=== PATIENT | male | born 1995 | race Caucasian/White ===

== ENCOUNTER → 2020-11-03 12:46 | Outpatient (BNVA) | payer OTHER, SELFPAY | PROVIDERS: Visit Provider Physician Assistant Medical | DX: S63.501A Unspecified sprain of right wrist, initial encounter (principal); X58.XXXA Exposure to other specified factors, initial encounter; G56.10 Other lesions of median nerve, unspecified upper limb | CPT/HCPCS: 73110; 99203 ==

== ENCOUNTER → 2020-11-14 09:43 | Outpatient (BNVA) | payer OTHER, SELFPAY | PROVIDERS: Visit Provider Physician Assistant Medical | DX: S63.501D Unspecified sprain of right wrist, subsequent encounter (principal); X58.XXXD Exposure to other specified factors, subsequent encounter | CPT/HCPCS: 99213 ==

== ENCOUNTER 2020-11-14 10:10 | Outpatient (RCR) | payer OTHER, SELFPAY ==
--- NOTE | 2020-11-14 15:52 | MHC.OT.OEV ---
[address] [phone] F: [phone] Occupational Therapy Evaluation Diagnosis: Right wrist strain/median nerve neuropathy Date of Onset: 10/28/20 Date of Surgery: Attending Provider: Zahida Guerin PA-C Prescribed Treatment: Eval and treat MD Follow Up Appointment: History of Current Condition: Pt reports right hand sx due to repetitively scraping parts over 2 days Seen in the [facility], Placed on light duty and issued a wrist brace for night wear and work per pt reports. Pt D/C from the [facility] and orders to resume regular duty today Pt with continued median n sx. 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 Shares housework and yard work Current Level of Function and Occupation Self Care, Employment, Leisure: Indep in all areas. To return to regular duty today Sleep: WNL Driving: WNL Vision: Balance: Pain Assessment Pain Score: 0 Pain Scale Used: Numeric (0 - 10) Pain Location and Description: Denies pain Aggravating Factors: NA Alleviating Factors: NA Skin and Soft Tissue Assessment Skin and Soft Tissue: Swelling Comments: Mild thenar ms and volar D2 and 3 MCPjt effusion Nerve assessment Ulnar Nerve: Median Nerve: B/L Impaired Radial Nerve: Comments: B/L digits 1-3 diminished protective sensation. Complaint of pins and needles on right MMT WNL bilaterally Sensory Assessment Temperature: Light Touch: B/L Impaired Proprioception: Vibration: Comments: See above Edema Assessment Upper Extremity: Right Impaired Lower Extremity: Comments: Mild right radial hand Dexterity Assessment Dexterity: WNL Comments: 9 Hole Peg test normal right 22.8 sec....left 25 seg Functional Dexterity Test right 26 sec moderately functional , left 28 sec moderately functional Pt report some difficulty with fine coordination with Lego's Special Tests Comments: AROM(PROM) Strength Cervical Cervical Flexion: Cervical Extension: Cervical Lateral Flexion: Cervical Rotation: Comments: Shoulder Flexion: Extension: Abduction: Internal Rotation: External Rotation: Comments: Flexion: Extension: Abduction: Internal Rotation: External Rotation: Comments: WNL Elbow Flexion: Extension: Pronation: Supination: Comments: WNL Flexion: Extension: Pronation: Supination: Comments: WNL Wrist Flexion: Extension: Ulnar Deviation: Radial Deviation: Comments: WNL Flexion: Extension: Ulnar Deviation: Radial Deviation: Comments: WNL Thumb Thumb CMC Flexion: Thumb MCP Flexion: Thumb IP Flexion: Radial Abduction: Palmar Abduction: [place] (Kapandji 0-10): Comments: WNL Digits Index MCP: PIP: DIP: Long MCP: PIP: DIP: Ring MCP: PIP: DIP: Small MCP: PIP: DIP: Comments: WNL Gross Grasp: Right 90 lb Left 100 lb Lateral Pinch: 15 20 Two-Point Pinch: 15 17 Three-Jaw Sukh: 17 20 Comments: Dominant right < left Patient Education 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 Patient demonstrates Patient verbalizes Barriers to Learning: None Readiness for Learning: Accepting Who was educated? Patient Comments: Pt ed and practice with ther ex for median n glides and lumbrical stretches Pt ed on protection tech for median n recovery Plan of Care Assessment: Pt is a 25 yo male 2 wks 4 days right hand strain with med n sx due to repetitive scraping parts at work. He has improved with modified activity and wearing a wrist support. 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 He has continued mild radial hand edema and complains of continued constant pins and needles sensation He also demonstrates bilateral diminished protective sensation in radial digits with a negative Phalens and negative Tinels sign at the carpal wrist. He is indep with tendon and nerve glides and instructed on techniques to sx management. Skilled OT is not needed at this time. STG Duration: NA Short Term Goals: Na LTG Duration: Nursing Home Goals: NA Frequency and Duration: The patient will be seen na Treatment Plan: Home Exercise Program d/c Electronically Signed By: Alba Zimmer OT CHT CLT Reviewed/agree with student documentation: N/A Therapist: Please sign and return to therapist, Thank you for your referral.
--- NOTE | 2020-11-14 15:52 | MHC.OT.DC ---
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 Bilateral hands diminished protective sensation on digits 1-3. Pt is indep with HEP and self management of median n sx. Skilled OT is not needed at this time. Electronically Signed By: Alba Zimmer OT CHT CLT Reviewed/agree with student documentation: N/A Therapist: Please Sign and return to therapist, thank you for your referral.
== END 2020-11-14 15:51 | disposition home or self-care (01) ==
LOC: HO.OT 10:10
PROVIDERS: Visit Provider Physician Assistant Medical
DX: S66.911D Strain of unspecified muscle, fascia and tendon at wrist and hand level, right hand, subsequent encounter (principal); G62.9 Polyneuropathy, unspecified
CPT/HCPCS: 97165

== ENCOUNTER 2023-09-02 09:31 | Outpatient (AMB) | payer OTHER, SELFPAY ==
--- NOTE | 2023-09-02 09:57 | MHC.PC.OV ---
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 ?? Prior PCP:?Dr charles at [facility] Last office visit/CPE:? 2 yrs ago Acute issue(s):? R wrist/hand prior dx carpal tunnel. Uses wrist brace at bedtime. Has had OT. ?? PMHx:? R wrist Tendonitis, Seasonal allergies. SurgHx:? Deviated septum repair FHx:? Mom: Dyslexia. Dad: unknown SocHx:? Nonsmoker. EtOH 1-2 dr per week. No drugs PFSH Surgical History (Updated 09/02/23 @ 10:22 by Venessa Stanford CMA) H/O nasal septoplasty (~2015) Family History (Updated 09/02/23 @ 10:24 by Venessa Stanford CMA) Maternal Grandfather Diabetes Lung cancer Maternal Grandmother Lung cancer Social History (Updated 09/02/23 @ 10:21 by Venessa Stanford CMA) Housing: House Alcohol intake: current Alcohol intake frequency: a few times a week Alcohol type: beer and hard liquor Patient Tobacco Use Status: Never used Tobacco e-Cigarette/Vaping Use: Never Used Use of substances other than those prescribed or required for medical reasons: No service: No Current occupational status: employed 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 1. Little interest or pleasure in doing things: not at all 2. Feeling down, depressed, or hopeless: not at all 3. Trouble falling or staying asleep, or sleeping too much: several days 4. Feeling tired or having little energy: several days 5. Poor appetite or overeating: not at all 6. Feeling bad about yourself - or that you are a failure or have let yourself or your family down: not at all 7. Trouble concentrating on things, such as reading the newspaper or watching television: not at all 8. Moving or speaking so slowly that other people could have noticed. Or the opposite - being so fidgety or restless that you have been moving around a lot more than usual: not at all 9. Thoughts that you would be better off or of hurting yourself in some way: not at all Total score: 2 Depression Screening Interpretation: Negative Depression Screening Done: Yes 55757 - PHQ-9 Billing: Yes Source: Developed by Drs. Eliezer Horvath, Jen Williamson, Daniel Lazcano and colleagues, with an educational shelbi from [employer]. Thrive Questionnaire Date Thrive assessed: 09/02/23 I am a: Patient What is your living situation today?: I have a steady place to live Within the past 12 months, did the food you bought not last and you didn't have the money to get more?: Never true Within the past 12 months, did you worry whether your food would run out before you got money to buy more?: Never true Do you have trouble paying for medicines?: No Do you have trouble getting transportation to medical appointments?: No Do you have trouble paying your heating and electricity bill?: No Do you have trouble taking care of your child, family member or friend?: No Do you have trouble with day-to-day activities such as bathing, preparing meals, shopping, managing finances, etc.?: No Are you currently unemployed and looking for a job?: No Are you interested in more education?: No THRIVE Score: 0 AUDIT C Alcohol Use Questionnaire (AUDIT-C) 1. How often do you have a drink containing alcohol?: Monthly or less 2. How many drinks containing alcohol do you have on a typical day when you are drinking?: 1 or 2 3. How often do you have six or more drinks on one occasion?: Never Total Score: 1 CLAU-7 AMB Questionnaire CLAU-7 Date CLAU - 7 assessed: 09/02/23 Feeling nervous, anxious, or on edge: 1 = Several days Not being able to stop or control worryin = Not at all Worrying too much about different things: 1 = Several days Trouble relaxin = Not at all Being so restless that it is hard to sit still: 1 = Several days Becoming easily annoyed or irritable: 0 = Not at all Feeling afraid as if something awful might happen: 1 = Several days Total CLAU-7 score (0-4 normal; 5-9 mild; 10-14 moderate; 15-21 severe): 4 Source: Developed by Drs. Eliezer Horvath, Jen Williamson, Daniel Lazcano and colleagues, with an educational shelbi from [employer]. CLAU-7 Assessment Billing CLAU-7 Assessment Tool: CLAU-7 Assessment 33343 Review of Systems Const Denies chills, Denies fatigue, Denies fever(s), Denies headache(s) and Denies weakness ENT Denies dizziness and Denies headache(s) Card Denies chest pain, Denies lightheadedness, Denies dyspnea and Denies other (Palpitations) Resp Denies cough, Denies dyspnea, Denies wheezing and Denies other ( shortness of breath) Musc Denies numbness and Denies tingling Neuro Denies dizziness, Denies headache(s), Denies numbness, Denies tingling, Denies paresthesias and Denies weakness Psych Denies anxiety and Denies depression Endo Denies fatigue Aller/Immun Denies wheezing Physical exam (Primary Care) Vital Signs: Last Vital Signs Pulse 87 09/02/23 10:09 BP 108/62 09/02/23 10:09 Pulse Ox 97 09/02/23 10:09 Oxygen Delivery Method Room Air 09/02/23 10:09 BMI result Body Mass Index 30.2 Tobacco/Smoking Status: Tobacco use Status Tobacco use date assessed 09/02/23 09/02/23 10:26 Patient Tobacco Use Status Never used Tobacco 09/02/23 10:26 e-Cigarette/Vaping Use Never Used 09/02/23 10:26 PHQ-9: PHQ-9 Score PHQ-9: Total score 2 09/02/23 10:32 Depression Screening Interpretation: Negative Thrive Assessment: Date of Thrive Assessment Date Thrive assessed 09/02/23 09/02/23 10:26 Const General: no acute distress and well developed Nutritional Appearance: well nourished Orientation/consciousness: patient oriented x3 HENMT Head: Yes normocephalic and Yes atraumatic Eyes General: appearance normal, both eyes and all related structures Pupils: Equal, round and reactive pupils present EOM: EOMs intact bilaterally Resp Effort & Inspection: normal respiratory effort Auscultation: clear to auscultation bilaterally Cardio Rate: regular rate Rhythm: regular rhythm Heart sounds: S1 normal heart sound present, S2 normal heart sound present, no gallops, no murmurs and no rubs Neuro General: patient oriented x3 and gait normal Cranial nerves: Yes Equal, round and reactive pupils present Psych Affect: normal affect Assessment and Plan Assessment & Plan (1) Right wrist pain: Code(s): M25.531 - Pain in right wrist Plan: Likely?tendinitis?and?possible?de?Quervain?tenosynovitis Advised?ice/heat Will?give?him?a?script?for?naproxen He?has?already?undergone?occupational?therapy?and?tried?injection?therapy?as?well?as?using?a?wrist?brace?at?night Unable?to?use?a?wrist?brace?at?work?due?to?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;?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 Will?refer?to?hand?surgery?for?further?evaluation?and?treatment (2) Allergies: Code(s): T78.40XA - Allergy, unspecified, initial encounter Plan: Continue?cetirizine (3) Difficulty sleeping: Code(s): G47.9 - Sleep disorder, unspecified Plan: Can?continue?melatonin (4) Laboratory exam ordered as part of routine general medical examination: Code(s): Z00.00 - Encounter for general adult medical examination without abnormal findings Plan: Check?labs Orders: Orders Lipid Panel Today Z00.00 - Encounter for general adult medical examination without abnormal findings TSH reflex Free T4 Today Z00.00 - Encounter for general adult medical examination without abnormal findings Comprehensive Leslie. Panel Fast Today Z00.00 - Encounter for general adult medical examination without abnormal findings Microalbumin, Random (w Creat) Today I10 - Essential (primary) hypertension UA and rflx microscopic Today Z00.00 - Encounter for general adult medical examination without abnormal findings Referrals Hand Surgery Referral M25.531 - Pain in right wrist Medications: New naproxen 500 mg PO BID 30 days PRN 60 tabs 2RF pain Coding Level of Care Code New Pt Level 3 (04023) Diagnoses Right wrist pain M25.531 Allergies T78.40XA Difficulty sleeping G47.9 Laboratory exam ordered as part of routine general medical examination Z00.00 Additional Codes CLAU-7 Assessment Billing - CLAU-7 Assessment Tool: CLAU-7 Assessment 50307 ([id number])
[2023-09-02 10:09] VITALS: BP 108/62; PULSE 87; O2SAT 97; BMI 30.2
== END 2023-09-02 11:19 | disposition home or self-care (01) ==
PROVIDERS: Visit Provider Family Medicine
DX: M25.531 Pain in right wrist (principal); T78.40XA Allergy, unspecified, initial encounter; G47.9 Sleep disorder, unspecified
CPT/HCPCS: 99203

== ENCOUNTER 2023-09-14 14:34 | Outpatient (REF) | payer OTHER, SELFPAY ==
[2023-09-14 18:09] LABS: Appearance Urine Clear; Color Urine Yellow; Glucose Urine UA Negative (Negative); Leukocyte Esterase Urine Negative (Negative); Nitrite Urine Negative (Negative); PH 6.5 (5.0-9.0); Specific Gravity - Urine <= 1.005 (1.005-1.025); Urine Blood Negative (Negative); Urine Ketones Trace mg/dL (Negative); Urine Protein Negative (Neg-Trace)
[2023-09-14 18:21] LABS: Alanine Aminotransferase 77 U/L (0-40); Albumin Level 5.1 g/dL (3.5-5.0); Alkaline Phosphatase 71 U/L (39-117); Anion Gap 15 (12-20); Aspartate Amino Transferase 32 U/L (5-37); Bilirubin Total 0.5 mg/dL (0.0-1.0); Blood Urea Nitrogen 11 mg/dL (9-16); Calcium 10.5 mg/dL (8.4-10.2); Carbon Dioxide 28 mmol/L (22-29); Chloride 101 mmol/L (96-108); Cholesterol 186 mg/dL (<200); Estimated Glomerular Filt Rate > 60; Glucose Fasting 87 mg/dL (60-99); HDL Cholesterol 42 mg/dL (>40); LDL Cholesterol Calculated 126 mg/dL (<100); Potassium 3.8 mmol/L (3.3-5.1); Sodium 140 mmol/L (135-145); Total Protein 8.2 g/dL (6.5-8.0); Triglycerides 92 mg/dL (<150)
[2023-09-14 18:22] LABS: Creatinine Urine 34.79 mg/dL; Microalbumin Urine < 5.0 mg/L
[2023-09-14 18:36] LABS: TSH reflex Free T4 0.99 uIU/mL (0.32-4.0)
== END 2023-09-14 14:35 | disposition home or self-care (01) ==
LOC: HO.WFDLDS 14:34
PROVIDERS: Visit Provider Family Medicine
DX: Z00.00 Encounter for general adult medical examination without abnormal findings (principal); I10 Essential (primary) hypertension
CPT/HCPCS: 36415; 80053; 80061; 81003; 82570; 84443

== ENCOUNTER 2023-11-07 15:45 | Outpatient (AMB) | payer OTHER, SELFPAY ==
--- NOTE | 2023-11-07 15:52 | MHC.PC.OV ---
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 30 mins Intake Note: Physical Allergies No Known Allergies Allergy (Verified 11/07/23 15:52) Tobacco use date assessed: 09/02/23 Dental Screening Dental Screen Date: 09/02/23 HPI HPI Comments History of Present Illness Details This is a 28-year-old male with a past medical history of Asperger's, allergies and difficulty sleeping presenting for a physical exam. The patient does not have any specific concerns today. He is up-to-date with eye and dental exams. He has an appointment scheduled to get the seasonal influenza vaccine. We reviewed his lab results from September. It looks like he may have been mildly dehydrated. He did the blood work after fasting all day and working. He will repeat a CMP. He has 2 alcoholic beverages 2 or 3 times per month. No abdominal pain, nausea, vomiting or jaundice. ROS: Constitutional: No unexplained weight loss, fever, chills, fatigue or night sweats. Eyes: No vision changes, blurry vision, double vision, eye pain, eye redness, eye discharge. ENT: No hearing loss, sneezing, congestion, runny nose or sore throat. Respiratory: No shortness of breath, cough or sputum production. Cardiovascular: No chest pain, chest pressure or chest discomfort. No palpitations or pedal edema. Gastrointestinal: No anorexia, nausea, vomiting or diarrhea. No abdominal pain or blood in stool. +occasional acid reflux. Genitourinary: No dysuria, hematuria, urinary frequency. No testicular masses, swelling, scrotal pain or urethral discharge. Neurologic: No headache, dizziness, syncope, unilateral weakness, ataxia, numbness or tingling in the extremities. Musculoskeletal: No muscle pain, back pain, joint pain or swelling. Hematologic/Lymphatics: No bleeding or bruising. No painful lymph nodes. Skin: No rash or itching. Endocrine: No cold or heat intolerance. No polyuria or polydipsia. Psychiatric: No depression or anxiety. No SI/HI. Physical exam: Constitutional: Alert, in no distress. Head: Normocephalic. Eyes: Pupils are equal, round and reactive to light. Extraocular muscles intact. Ear, Nose and Throat: Canals clear. TMs normal. Normal nasal mucosa. No nasal discharge. No oral lesions. Neck: Supple, Full range of motion. No lymphadenopathy. No palpable thyroid masses. Respiratory: Clear to auscultation. Cardiovascular: S1 S2 regular. No murmurs. N Gastrointestinal: Abdomen soft, non-tender, non-distended. Normal bowel sounds. No palpable masses. Genitourinary: Patient declined examination. Neurologic: No focal neurological deficits. Symmetric patellar reflexes. Moves all extremities spontaneously. Sensation intact bilaterally. Skin: No rashes Musculoskeletal: No gross deformities. Normal range of motion. Extremities: Warm and well perfused. No clubbing, cyanosis or edema. 3+ peripheral pulses bilaterally. Psychiatric: Cooperative. [facility] Medical History (Updated 11/07/23 @ 16:26 by TORI King) Asperger syndrome Surgical History (Updated 09/02/23 @ 10:22 by Venessa Stanford CMA) H/O nasal septoplasty (~2015) Family History (Updated 11/07/23 @ 16:11 by TORI King) Maternal Grandfather Diabetes Lung cancer Maternal Grandmother Lung cancer Family/Other Diabetes Social History (Updated 09/02/23 @ 10:21 by Venessa Stanford CMA) Housing: House Alcohol intake: current Alcohol intake frequency: a few times a week Alcohol type: beer and hard liquor Patient Tobacco Use Status: Never used Tobacco e-Cigarette/Vaping Use: Never Used service: No Current occupational status: employed 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 1. Little interest or pleasure in doing things: not at all 2. Feeling down, depressed, or hopeless: not at all 3. Trouble falling or staying asleep, or sleeping too much: not at all 4. Feeling tired or having little energy: not at all 5. Poor appetite or overeating: not at all 6. Feeling bad about yourself - or that you are a failure or have let yourself or your family down: not at all 7. Trouble concentrating on things, such as reading the newspaper or watching television: not at all 8. Moving or speaking so slowly that other people could have noticed. Or the opposite - being so fidgety or restless that you have been moving around a lot more than usual: several days 9. Thoughts that you would be better off or of hurting yourself in some way: not at all Total score: 1 Depression Screening Interpretation: Negative Depression Screening Done: Yes 47201 - PHQ-9 Billing: Yes Source: Developed by Drs. Eliezer Horvath, Jen Williamson, Daniel Lazcano and colleagues, with an educational shelbi from [employer]. Thrive Questionnaire Date Thrive assessed: 09/02/23 I am a: Patient What is your living situation today?: I have a steady place to live Within the past 12 months, did the food you bought not last and you didn't have the money to get more?: Never true Within the past 12 months, did you worry whether your food would run out before you got money to buy more?: Never true Do you have trouble paying for medicines?: No Do you have trouble getting transportation to medical appointments?: No Do you have trouble paying your heating and electricity bill?: No Do you have trouble taking care of your child, family member or friend?: No Do you have trouble with day-to-day activities such as bathing, preparing meals, shopping, managing finances, etc.?: No Are you currently unemployed and looking for a job?: No Are you interested in more education?: No Please select the resources that you would like help with: None Currently or been in a relationship where the following occur: No concerns reported THRIVE Score: 0 AUDIT C Alcohol Use Questionnaire (AUDIT-C) 2. How many drinks containing alcohol do you have on a typical day when you are drinking?: 1 or 2 3. How often do you have six or more drinks on one occasion?: Never Total Score: 0 CLAU-7 AMB Questionnaire CLAU-7 Date CLAU - 7 assessed: 11/07/23 Feeling nervous, anxious, or on edge: 1 = Several days Not being able to stop or control worryin = Not at all Worrying too much about different things: 1 = Several days Trouble relaxin = Not at all Being so restless that it is hard to sit still: 1 = Several days Becoming easily annoyed or irritable: 0 = Not at all Feeling afraid as if something awful might happen: 1 = Several days Total CLAU-7 score (0-4 normal; 5-9 mild; 10-14 moderate; 15-21 severe): 4 Source: Developed by Drs. Eliezer Horvath, Jen Williamson, Daniel Lazcano and colleagues, with an educational shelbi from [employer]. CLAU-7 Assessment Billing CLAU-7 Assessment Tool: CLAU-7 Assessment 68538 Physical exam (Primary Care) Vital Signs: Last Vital Signs Pulse 72 11/07/23 15:57 Resp 14 11/07/23 15:57 BP 108/64 11/07/23 15:57 Pulse Ox 97 11/07/23 15:57 Oxygen Delivery Method Room Air 11/07/23 15:57 BMI result Body Mass Index 25.1 Tobacco/Smoking Status: Tobacco use Status Tobacco use date assessed 09/02/23 11/07/23 16:01 Patient Tobacco Use Status Never used Tobacco 11/07/23 16:01 e-Cigarette/Vaping Use Never Used 11/07/23 16:01 PHQ-9: PHQ-9 Score PHQ-9: Total score 1 11/07/23 16:01 Depression Screening Interpretation: Negative Thrive Assessment: Date of Thrive Assessment Date Thrive assessed 09/02/23 11/07/23 16:01 Currently or been in a relationship where the following occur: No concerns reported Results Reviewed Results Reviewed: Laboratory Tests 09/14/23 09/14/23 14:35 14:40 Calcium 10.5 H AST 32 ALT 77 H Alkaline Phosphatase 71 Total Protein 8.2 H Albumin 5.1 H Urine Ketones Trace Assessment and Plan Assessment & Plan (1) Routine physical examination: Code(s): Z00.00 - Encounter for general adult medical examination without abnormal findings Plan: Patient is seen today for a routine physical. As part of this visit we reviewed the following issues, which are considered and essential part of preventative health in this age group: - Testicular cancer screening, which includes self exam teaching - Screening for colon cancer routinely beginning at age 45 years - Blood pressure screening annually - Cholesterol screening - Nutritional and exercise counseling - Counseling of injury prevention including fire prevention, smoke alarms and seat belt usage - Screening for depression - Prevention of and/or testing for infectious diseases-declined screening tests for STIs - Education about skin cancer - Recommendations about immunizations - Recommendation of an eye exam - Screening for substance abuse (2) Abnormal laboratory test result: Code(s): R89.9 - Unspecified abnormal finding in specimens from other organs, systems and tissues Plan: Repeat lab test nonfasting when well hydrated. Plan Follow up in the office in 1 year for a physical exam. Orders: Orders Comprehensive Met. Panel Today R89.9 - Unspecified abnormal finding in specimens from other organs, systems and tissues Coding Level of Care Code Est Pt Prev Care 18-39y(86370) Diagnoses Routine physical examination Z00.00 Abnormal laboratory test result R89.9 Additional Codes CLAU-7 Assessment Billing - CLAU-7 Assessment Tool: CLAU-7 Assessment 78697 ([id number])
[2023-11-07 15:57] VITALS: BP 108/64; PULSE 72; RESP 14; O2SAT 97; BMI 25.1
== END 2023-11-07 16:26 | disposition home or self-care (01) ==
PROVIDERS: Visit Provider Physician Assistant Medical
DX: Z00.00 Encounter for general adult medical examination without abnormal findings (principal); R89.9 Unspecified abnormal finding in specimens from other organs, systems and tissues

== ENCOUNTER → 2023-11-07 15:45 | Outpatient (BNVA) | payer OTHER, SELFPAY | PROVIDERS: Visit Provider Physician Assistant Medical | DX: Z00.01 Encounter for general adult medical examination with abnormal findings (principal); R79.89 Other specified abnormal findings of blood chemistry | CPT/HCPCS: 96127 ==

== ENCOUNTER 2024-11-08 15:31 | Outpatient (AMB) | payer OTHER, SELFPAY ==
--- NOTE | 2024-11-08 15:36 | A.OFFPC_ITS ---
Vital Signs 11/08/24 15:40 Height 5 ft 11 in Weight 216 lb 2 oz BMI 30.1 BP 114/64 Blood Pressure Location Lt brachial Position Sitting Respiration 15 Pulse 74 Pulse Source Pulse Oximeter Temp 98.2 F Temp Source Temporal Artery Scan Pulse Oximetry (%) 95 Oxygen Delivery Method Room Air Intake Visit Reasons: cpe Intake Note: Jorge presents in the office today for his annual physical. Allergies Sonido nut Allergy (Uncoded 11/08/24 15:38) Swelling Tobacco use date assessed: 11/08/24 Dental Screening Dental Screen Date: 11/08/24 Did you have a dental visit in the last 12 months?: Yes Did you have a dental problem in the last 6 months where you did not have access to dental care?: No Was dental information given to patient?: Patient has dentist HPI HPI Comments History of Present Illness Details This is a 29-year-old male with a past medical history of Asperger's and seasonal allergies presenting for a physical exam. The patient does not have any specific concerns today. He is up-to-date with eye and dental exams. Flu vaccine administered today. Allergy to sonido nut. Epipen refilled. He denies interval reactions. ROS: Constitutional: No unexplained weight loss, fever, chills, fatigue or night sweats. Eyes: No vision changes, blurry vision, double vision, eye pain, eye redness, eye discharge. ENT: No hearing loss, sneezing, congestion, runny nose or sore throat. Respiratory: No shortness of breath, cough or sputum production. Cardiovascular: No chest pain, chest pressure or chest discomfort. No palpitations or pedal edema. Gastrointestinal: No anorexia, nausea, vomiting or diarrhea. No abdominal pain or blood in stool. Genitourinary: No dysuria, hematuria, urinary frequency. No testicular masses, swelling, scrotal pain or urethral discharge. Neurologic: No headache, dizziness, syncope, unilateral weakness, ataxia, numbness or tingling in the extremities. Musculoskeletal: No muscle pain, back pain, joint pain or swelling. Hematologic/Lymphatics: No bleeding or bruising. No painful lymph nodes. Skin: No rash or itching. Endocrine: No cold or heat intolerance. No polyuria or polydipsia. Psychiatric: No depression or anxiety. No SI/HI. Physical exam: Constitutional: Alert, in no distress. Head: Normocephalic. Eyes: Pupils are equal, round and reactive to light. Extraocular muscles intact. Ear, Nose and Throat: Canals clear. TMs normal. Normal nasal mucosa. No nasal discharge. No oral lesions. Neck: Supple, Full range of motion. No lymphadenopathy. No palpable thyroid masses. Respiratory: Clear to auscultation. Cardiovascular: S1 S2 regular. No murmurs. Gastrointestinal: Abdomen soft, non-tender, non-distended. Normal bowel sounds. No palpable masses. Genitourinary: Patient declined examination. He does home exams. Neurologic: No focal neurological deficits. Symmetric patellar reflexes. Moves all extremities spontaneously. Sensation intact bilaterally. Skin: No rashes , multiple nevi on the trunk, upper back and neck Musculoskeletal: No gross deformities. Normal range of motion. Extremities: Warm and well perfused. No clubbing, cyanosis or edema. Intact peripheral pulses bilaterally. Psychiatric: Cooperative. [facility] Medical History (Updated 11/08/24 @ 15:52 by TORI King) Routine physical examination Asperger syndrome Surgical History (Updated 09/02/23 @ 10:22 by Venessa Stanford CMA) H/O nasal septoplasty (~2015) Family History (Updated 11/08/24 @ 15:40 by Sharron Ko CMA) Maternal Grandfather Diabetes Lung cancer Maternal Grandmother Lung cancer Family/Other Diabetes Social History (Updated 11/08/24 @ 15:40 by Sharron Ko CMA) Housing: House Alcohol intake: current Alcohol intake frequency: a few times a week Alcohol type: beer and hard liquor Patient Tobacco Use Status: Never used Tobacco e-Cigarette/Vaping Use: Never Used Second Hand Smoke Exposure: No service: No Current occupational status: employed 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 1. Little interest or pleasure in doing things: not at all 2. Feeling down, depressed, or hopeless: several days 3. Trouble falling or staying asleep, or sleeping too much: not at all 4. Feeling tired or having little energy: not at all 5. Poor appetite or overeating: not at all 6. Feeling bad about yourself - or that you are a failure or have let yourself or your family down: not at all 7. Trouble concentrating on things, such as reading the newspaper or watching television: not at all 8. Moving or speaking so slowly that other people could have noticed. Or the opposite - being so fidgety or restless that you have been moving around a lot more than usual: not at all 9. Thoughts that you would be better off or of hurting yourself in some way: not at all Total score: 1 Depression Screening Interpretation: Negative Depression Screening Done: Yes 33162 - PHQ-9 Billing: Yes Source: Developed by Drs. Eliezer Horvath, Jen Williamson, Daniel Lazcano and colleagues, with an educational shelbi from [employer]. Thrive Questionnaire Date Thrive assessed: 11/08/24 I am a: Patient What is your living situation today?: I have a steady place to live Within the past 12 months, did the food you bought not last and you didn't have the money to get more?: Never true Within the past 12 months, did you worry whether your food would run out before you got money to buy more?: Never true Do you have trouble paying for medicines?: No Do you have trouble getting transportation to medical appointments?: No Do you have trouble paying your heating and electricity bill?: No Do you have trouble taking care of your child, family member or friend?: No Do you have trouble with day-to-day activities such as bathing, preparing meals, shopping, managing finances, etc.?: No Are you currently unemployed and looking for a job?: No Are you interested in more education?: I choose not to answer this question Please select the resources that you would like help with: None Currently or been in a relationship where the following occur: No concerns reported THRIVE Score: 0 AUDIT C Alcohol Use Questionnaire (AUDIT-C) 1. How often do you have a drink containing alcohol?: 2-4 times a month 2. How many drinks containing alcohol do you have on a typical day when you are drinking?: 1 or 2 3. How often do you have six or more drinks on one occasion?: Never Total Score: 2 CLAU-7 AMB Questionnaire CLAU-7 Date CLAU - 7 assessed: 11/08/24 Feeling nervous, anxious, or on edge: 1 = Several days Not being able to stop or control worryin = Not at all Worrying too much about different things: 0 = Not at all Trouble relaxin = Not at all Being so restless that it is hard to sit still: 0 = Not at all Becoming easily annoyed or irritable: 0 = Not at all Feeling afraid as if something awful might happen: 0 = Not at all Total CLAU-7 score (0-4 normal; 5-9 mild; 10-14 moderate; 15-21 severe): 1 Source: Developed by Drs. Eliezer Horvath, Jen Williamson, Daniel Lazcano and colleagues, with an educational shelbi from [employer]. CLAU-7 Assessment Billing CLAU-7 Assessment Tool: CLAU-7 Assessment 56978 Physical exam (Primary Care) Vital Signs: Last Vital Signs Temp 98.2 F 11/08/24 15:40 Pulse 74 11/08/24 15:40 Resp 15 11/08/24 15:40 BP 114/64 11/08/24 15:40 Pulse Ox 95 11/08/24 15:40 Oxygen Delivery Method Room Air 11/08/24 15:40 BMI result Body Mass Index 30.1 Tobacco/Smoking Status: Tobacco use Status Tobacco use date assessed 11/08/24 11/08/24 15:43 Patient Tobacco Use Status Never used Tobacco 11/08/24 15:43 e-Cigarette/Vaping Use Never Used 11/08/24 15:43 PHQ-9: PHQ-9 Score PHQ-9: Total score 1 11/08/24 16:06 Depression Screening Interpretation: Negative Thrive Assessment: Date of Thrive Assessment Date Thrive assessed 11/08/24 11/08/24 15:43 Currently or been in a relationship where the following occur: No concerns reported Office Procedures Flu Questionnaire Does the patient have a severe egg allergy?: No Does the patient have severe life threatening allergies?: No Has the patient ever had Guillain-Beebe Syndrome?: No Has the patient ever had any past reaction to a flu shot?: No Immunizations Fluarix [id number] (PF) 45 mcg (15 mcg x 3)/0.5 mL IM syringe Performing Provider: TORI King Performing Location: [facility] Administered by: Sharron Ko CMA on 11/08/24 16:05 Dose Route Admin Location Dispensed Lot Number Expiration Date [employer] 0.5 mL IM Left Deltoid 0.5 mL [id number] 08/06/25 16954-803-32 [place] VIS Given Date VIS Provided VIS Publication Date 11/08/24 Single Vaccine 24 Eligibility Eligibility Date Funding Source Not [facility] Eligible 11/08/24 Private Coding Level of Care Code Est Pt Prev Care 18-39y(84897) Diagnoses Routine physical examination Z00.00 Additional Codes CLAU-7 Assessment Billing - CLAU-7 Assessment Tool: CLAU-7 Assessment 50241 ([id number]) PHQ-9 - 20305 - PHQ-9 Billing: Yes ([id number]) Assessment & Plan Assessment & Plan (1) Routine physical examination: Code(s): Z00.00 - Encounter for general adult medical examination without abnormal findings Category: Medical Plan: Patient is seen today for a routine physical. As part of this visit we reviewed the following issues, which are considered and essential part of preventative health in this age group: - Testicular cancer screening, which includes self exam teaching - Blood pressure screening - Cholesterol screening - Nutritional and exercise counseling - Counseling of injury prevention including fire prevention, smoke alarms and seat belt usage - Screening for depression - Prevention of and/or testing for infectious diseases - Education about skin cancer-referred to dermatology for skin exam - Recommendations about immunizations - Recommendation of an eye exam - Screening for substance abuse Plan Schedule physical exam in 1 year. Orders: Orders Lipid Panel 11/08/24 E78.5 - Hyperlipidemia, unspecified, Z00.00 - Encounter for general adult medical examination without abnormal findings Comprehensive Met. Panel 11/08/24 Z00.00 - Encounter for general adult medical examination without abnormal findings Influenza [id number] Immunization 11/08/24 Z23 - Encounter for immunization Complete Blood Count no Diff 11/08/24 Z00.00 - Encounter for general adult medical examination without abnormal findings Referrals Dermatology Referral Z12.83 - Encounter for screening for malignant neoplasm of skin Medications: New epinephrine (EpiPen) for 2 doses 0.3 mg (0.3 mL) IM Q10M PRN 1 ea 1RF anaphylaxis
[2024-11-08 15:40] VITALS: BP 114/64; PULSE 74; RESP 15; TEMP 36.8; O2SAT 95; BMI 30.1
--- OUTSIDE RECORDS SUMMARY | 2024-11-08 16:45 | XMS_ITS ---
Author Name [facility] Organization Unknown History of Medication Use Medication Directions Dispensed Refills Start Date End Date Stat us No known medications No known medications active Allergies Allergen Reaction Severity Comment Documented Date Source Statu s CHOLESTATIN UNKNOWN/PATIENT AND FAMILY UNABLE TO DEFINE 09/23/2015 [facility] active Problems Problem Status Onset Date Problem Type Date of Resoluti on Source Subungual hematoma of right little finger, initial encounter active EncounterDiagnosisAct CCT Encounters Encounter Type Encounter Reason Primary Diagnosis Location Date Ambulatory RIGHT WRIST PAIN RIGHT WRIST PAIN [facility] 09/26/2024 Ambulatory Contusion of rig ht little finger with damage to nail, initial encounter [facility] 06/04/2022 Care Team Organization Name Specialty Phone Email Start Date End Da [facility] No provided Primary Care 09/26/2024 [facility] Primary Care 06/06/2024 [facility] 06/04/2022 06/04/2022 [facility] 06/04/2022 [facility] Primary Care 02/15/2022 09/26/2023 [facility] 12/15/2021 09/26/2023
--- OUTSIDE RECORDS SUMMARY | 2024-11-08 16:45 | XMS_ITS | Encounter Summary ---
Author Organization [facility] Address [address] [place] [id number] Phone Care Team Providers Care Incubator Tender Name Role Phone Tommy Phan MD Primary Care Provider [phone] Encounter Details Date Type Department Care Team (Late st Contact Info) Description 06/26/2017 Conversion Encounter [facility] [address] [place] [address] [place] [address] Social History Tobacco Use Types Packs/Day Years Used Date Smoking Tobacco: Never Assessed Sex and Gender Information Value Date Recorded Sex Assigned at Not on file Legal Sex Male 6:09 PM EDT Gender Identity Not on file Sexual Orientation Not on file documented as of this encounter Plan of Treatment Not on file documented as of this encounter Visit Diagnoses Not on filedocumented in this encounter Care Teams Incubator Tender Relationship Specialty Start Date End Date Tommy Phan MD [address] [place] [address] PCP - General 06/15/17 11/03/23 documented as of this encounter
--- OUTSIDE RECORDS SUMMARY | 2024-11-08 16:45 | XMS_ITS | Clinical Summary ---
Author Organization [facility] Address [address] [place] [address] Phone Care Team Providers Care Armament Aircraft Mechanic Name Role Phone Unavailable Primary Care Provider Unavailabl e Immunizations Immunization Administration Dates Next Due DTaP 05/09/2000, 7,1995,09/07,1995 HPV, Quadrivalent 05/21/2013,12/12/2012,10/11/19 13 Hep B, ped/adol 05/17/1996,1995 Hib (PRP-T) 08/06/1996, 6,1995,06/07 IPV 05/28/1999, 6,1995,06/07 Influenza, injectable, quadrivalent 10/09,10/31/2010,12/11/2009,01/16 Influenza, injectable, quadr ivalent, preservative free 10/10/2012 MMR 05/09/2000,1995 Meningococcal Conj (Menactra) MCV4P 08/05/2011,0 08/11/2006 Tdap 08/11/2006 Varicella 07/29/2008,11/06/1997 Family History Relation Name Status Comments Father Aneurysm; Facto r V Leiden def Maternal Grandfather Alive DM diag nosed with DMII WO CMP NT [facility] Maternal Grandmother Alive DM diag nosed with DMII WO CMP NT [facility] Mother Alive hx of high chol esterol diagnosed with Hypertension Paternal Grandfather Social History Tobacco Use Types Packs/Day Years Used Date Smoking Tobacco: Never Assessed Sex and Gender Information Value Date Recorded Sex Assigned at Not on file Legal Sex Male 6:09 PM EDT Gender Identity Not on file Sexual Orientation Not on file Last Filed Vital Signs Vital Sign Reading Time Taken Comments Blood Pressure 118/60 08/31/2013 12:00 AM EDT Pulse - - Temperature 36.8 C (98.2 F) 08/31/2013 12:00 AM EDT Respiratory Rate - - Oxygen Saturation - - Inhaled Oxygen Concentration - - Weight 80.1 kg (176 lb 9.6 oz) 08/31/2013 12:00 AM EDT Height 179.7 cm (5' 10.75 ) 08/31/2013 12:00 AM EDT Body Mass Index 24.81 08/31/2013 12:00 AM EDT Plan of Treatment Health Maintenance Due Date Last Done Comments Hepatitis B Vaccines (3 of 3 - 3-dose series) 07/12/1996 05/17/1996, 1995 DTaP,Tdap,and Td Vaccines (6 - Td or Tdap) 08/11/2016 08/11/2006, 05/09/2000, 08/06/1996, Additional history exists Influenza Vaccines (#1) 2024 10/11/19 13, 11/02/2011, 10/31/2010, Additional history exists COVID-19 Vaccine ( season) 2024 HIB Vaccines Completed 08/06/1996, 02/1995, 1995, Additional history exists IPV Vaccines Completed 05/28/1999, 02/1995, 1995, Additional history exists MMR Vaccines Completed 05/09/2000, 1995 Varicella Vaccines Completed 07/29/2008, 11/06/1997 Meningococcal Vaccine Completed 08/05/2011, 007 HPV Vaccines Completed 05/21/2013, 06/2012, 10/10/2012 Hepatitis A Vaccines Aged Out No long er eligible based on patient's age to complete this topic Men B Vaccine Aged Out No longer elig ible based on patient's age to complete this topic Pneumococcal Vaccine Aged Out No long er eligible based on patient's age to complete this topic
--- OUTSIDE RECORDS SUMMARY | 2024-11-08 16:45 | XMS_ITS | Clinical Summary ---
Author Organization [facility] Address [address] [place] [address] Care Team Providers Care Ethyl Blender Name Role Phone Unavailable Primary Care Provider Unavailabl e Allergies Active Allergy Reactions Criticality Noted Date Comments Octacosanol Unknown/Patient and Family Unable to Define Medium 09/23/2015 Medications No known medications Active Problems No known active problems Social History Tobacco Use Types Packs/Day Years Used Date Smoking Tobacco: Never Assessed Sex and Gender Information Value Date Recorded Sex Assigned at Male 06/04/2022 9:48 AM EDT Legal Sex Male 9:46 AM EDT Gender Identity Male 06/04/2022 9:48 AM EDT Sexual Orientation Not on file Last Filed Vital Signs Vital Sign Reading Time Taken Comments Blood Pressure 126/75 06/04/2022 10:09 AM EDT Pulse 78 06/04/2022 10:09 AM EDT Temperature 36.8 C (98.2 F) 06/04/2022 10:09 AM EDT Respiratory Rate - - Oxygen Saturation 97% 06/04/2022 10:09 AM EDT Inhaled Oxygen Concentration - - Weight 90.7 kg (200 lb) 06/04/2022 10:09 AM EDT Height 180.3 cm (5' 11 ) 06/04/2022 10:09 AM EDT Body Mass Index 27.89 06/04/2022 10:09 AM EDT Plan of Treatment Health Maintenance Due Date Last Done Comments Hepatitis C Virus Screening 1995 HIV Screening 05/06/2008 DTaP/Tdap/Td Vaccines (1 - Tdap) 05/06/2014 Hepatitis B Vaccines (1 of 3 - 19+ 3-dose series) 05/06/2014 Influenza Vaccine 09/07/2024 COVID-19 Vaccine (2 - 2024-2 6 season) 2024 05/23/2020 HPV Vaccines (No Doses Required) Completed Pneumococcal Vaccine: Pediat wolf (0-5 Years) and At-Risk Patients (6 to 49 Years) Aged Out No longer eligible b ased on patient's age to complete this topic
== END 2024-11-08 16:07 | disposition home or self-care (01) ==
LOC: HO.HMCFM 15:32
PROVIDERS: PCP Physician Assistant Medical; Visit Provider Physician Assistant Medical
DX: Z23 Encounter for immunization (principal)

== ENCOUNTER → 2024-11-08 15:31 | Outpatient (BNVA) | payer OTHER, SELFPAY | PROVIDERS: PCP Physician Assistant Medical; Visit Provider Physician Assistant Medical | DX: Z00.00 Encounter for general adult medical examination without abnormal findings (principal); Z23 Encounter for immunization; F84.5 Asperger's syndrome; Z13.31 Encounter for screening for depression; Z13.39 Encounter for screening examination for other mental health and behavioral disorders | CPT/HCPCS: 90471; 90656; 96127 ==

== ENCOUNTER 2025-01-28 13:57 | Outpatient (AMB) | payer OTHER, SELFPAY ==
--- NOTE | 2025-01-28 14:21 | A.OFFPC_ITS ---
Vital Signs 01/28/25 14:24 Height 5 ft 11 in Weight 219 lb BMI 30.5 BP 100/62 Blood Pressure Location Rt brachial Position Sitting Respiration 15 Pulse 70 Pulse Source Pulse Oximeter Temp 98 F Temp Source Temporal Artery Scan Pulse Oximetry (%) 97 Oxygen Delivery Method Room Air Intake Visit Reasons: Carpal Tunnel Surgery on 02/08/2025 Intake Note: Jorge presents in the office today for a PRE-OP appointment for his Carpel Tunnel surgery on 02/08/2025. Cattyman Required: No Allergies Kari nut Allergy (Uncoded 01/28/25 14:23) Swelling Tobacco use date assessed: 01/28/25 Dental Screening Dental Screen Date: 01/28/25 Did you have a dental visit in the last 12 months?: Yes Did you have a dental problem in the last 6 months where you did not have access to dental care?: No Was dental information given to patient?: Patient has dentist HPI HPI Comments History of Present Illness Details This is a 29-year-old male with a past medical history of Asperger's and seasonal allergies presenting for a preoperative exam. [facility] Right carpal tunnel release 02/08/25. Surgeon: Patient unsure. Paperwork has not been received by fax. Endorses right carpal tunnel symptoms for 5 years, persistent despite physical therapy. Patient has had anesthesia for wisdom teeth removal and ENT surgery. No issues with anesthesia. Denies personal or family history of blood clots or bleeding disorder. He has no known history of cardiovascular disease or chronic respiratory disease. He takes ibuprofen as needed for migraines. He takes melatonin as needed for sleep and Flonase and Zyrtec for allergies. He has an allergy to hazelnut. He has an EpiPen. No known drug allergies or other food allergies. ROS: Constitutional: No unexplained weight loss, fever, chills, fatigue or night sweats. Eyes: No vision changes, blurry vision, double vision, eye pain, eye redness, eye discharge. ENT: No ear pain, sinus pain or sore throat. Mild rhinorrhea attributed to allergies. Respiratory: No shortness of breath, cough or sputum production. Cardiovascular: No chest pain, chest pressure or chest discomfort. No pal pitations or pedal edema. Gastrointestinal: No anorexia, nausea, vomiting or diarrhea. No abdominal pain or blood in stool. Genitourinary: No dysuria, hematuria, urinary frequency. Neurologic: No headache, dizziness, syncope or tremor Musculoskeletal see HPI Hematologic/Lymphatics: No bleeding or bruising. No painful lymph nodes. Skin: No rashes Physical exam: Constitutional: Alert, in no distress. Eyes: Pupils are equal, round and reactive to light. Extraocular muscles intact. Ear, Nose and Throat: Canals clear. TMs normal. Normal nasal mucosa. No nasal discharge. No oral lesions. Neck: Supple, Full range of motion. No lymphadenopathy. Respiratory: Clear to auscultation. Cardiovascular: S1 S2 regular. No murmurs. Gastrointestinal: Abdomen soft, non-tender, non-distended. Normal bowel sounds. No palpable masses. Genitourinary: No CVA tenderness Neurologic: No focal neurological deficits. Skin: No rashes Extremities: Warm and well perfused. No clubbing, cyanosis or edema. [facility] Medical History (Updated 01/28/25 @ 14:56 by TORI King) Preop examination Routine physical examination Asperger syndrome Surgical History (Updated 09/02/23 @ 10:22 by Venessa Stanford CMA) H/O nasal septoplasty (~2015) Family History Maternal Grandfather Diabetes Lung cancer Maternal Grandmother Lung cancer Family/Other Diabetes Social History (Updated 01/28/25 @ 14:24 by Sharron Ko CMA) Housing: House Alcohol intake: current Alcohol intake frequency: a few times a week Alcohol type: beer and hard liquor Patient Tobacco Use Status: Never used Tobacco e-Cigarette/Vaping Use: Never Used Second Hand Smoke Exposure: No Use of substances other than those prescribed or required for medical reasons: No service: No Current occupational status: employed 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 Cognitive needs: No Hearing needs: No Vision needs: Yes Questionnaire Thrive Questionnaire Date Thrive assessed: 11/02/24 I am a: Patient What is your living situation today?: I have a steady place to live Within the past 12 months, did the food you bought not last and you didn't have the money to get more?: Never true Within the past 12 months, did you worry whether your food would run out before you got money to buy more?: Never true Do you have trouble paying for medicines?: No Do you have trouble getting transportation to medical appointments?: No Do you have trouble paying your heating and electricity bill?: No Do you have trouble taking care of your child, family member or friend?: No Do you have trouble with day-to-day activities such as bathing, preparing meals, shopping, managing finances, etc.?: No Are you currently unemployed and looking for a job?: No Are you interested in more education?: I choose not to answer this question Currently or been in a relationship where the following occur: No concerns reported THRIVE Score: 0 CLAU-7 AMB Questionnaire CLAU-7 Date CLAU - 7 assessed: 11/08/24 Source: Developed by Drs. Eliezer Horvath, Jen Williamson, Daniel Lazcano and colleagues, with an educational shelbi from [employer]. Physical exam (Primary Care) Vital Signs: Last Vital Signs Temp 98 F 01/28/25 14:24 Pulse 70 01/28/25 14:24 Resp 15 01/28/25 14:24 BP 100/62 01/28/25 14:24 Pulse Ox 97 01/28/25 14:24 Oxygen Delivery Method Room Air 01/28/25 14:24 BMI result Body Mass Index 30.5 Tobacco/Smoking Status: Tobacco use Status Tobacco use date assessed 01/28/25 01/28/25 14:27 Patient Tobacco Use Status Never used Tobacco 01/28/25 14:24 e-Cigarette/Vaping Use Never Used 01/28/25 14:24 Thrive Assessment: Date of Thrive Assessment Date Thrive assessed 11/02/24 01/28/25 14:22 Currently or been in a relationship where the following occur: No concerns reported Office Procedures EKG Details: EKG shows sinus arrhythmia with marked sinus arrhythmia, 62 beats per minute [id number]-[id number], Complete Coding Level of Care Code Est Pt Level 4 (35985) Add On Problem Visit Only Diagnoses Preop examination Z01.818 CPT Codes EKG - CPT: 29593-[id number], Complete ([id number]) Assessment & Plan Assessment & Plan (1) Preop examination: Code(s): Z01.818 - Encounter for other preprocedural examination Category: Medical Plan In summary this is a 29-year-old male presenting for preoperative examination for right carpal tunnel release. He does not have any identifiable medical conditions that increase his risk for this procedure. METS >10. He was advised to stop NSAIDs including ibuprofen and alcohol for 7 days prior to the procedure. He has was advised to hold his other medications the day of surgery and can resume them immediately following surgery. He will be cleared to proceed with surgery pending lab results from today. Orders: Orders Prothrombin Time INR Today Z79.01 - joint terminal attack controller (current) use of anticoagulants AMB EKG-In Office Today Z01.818 - Encounter for other preprocedural examination TSH reflex Free T4 Today G47.9 - Sleep disorder, unspecified
[2025-01-28 14:24] VITALS: BP 100/62; PULSE 70; RESP 15; TEMP 36.6; O2SAT 97; BMI 30.5
--- OUTSIDE RECORDS SUMMARY | 2025-01-28 17:27 | XMS_ITS | Clinical Summary ---
Author Organization [facility] Address [address] [place] [phone] Phone Care Team Providers Care Milk Receiver Tank Truck Name Role Phone Unavailable Primary Care Provider [...]
--- OUTSIDE RECORDS SUMMARY | 2025-01-28 17:27 | XMS_ITS | Encounter Summary ---
Author Organization [facility] Address [address] [place] [address] Phone Care Team Providers Care Box Stapler Name Role Phone Tommy Phan MD Primary Care Provider [phone] Encounter Details Date Type Department Care Team (Late st Contact Info) Description 06/26/2017 Conversion [facility]counter [facility] [address] [place] [address] Tommy Phan MD [address] [place] [address] Social History Tobacco Use Types Packs/Day Years [...] on filedocumented in this encounter Care Teams Box Stapler Relationship Specialty Start Date End Date Tommy Phan MD [address] [place] [address] PCP - General 06/15/17 11/03/23 documented as of this encounter
--- OUTSIDE RECORDS SUMMARY | 2025-01-28 17:27 | XMS_ITS | Clinical Summary ---
Author Organization [facility] Address [address] [place] [address] Care Team Providers Care Golf Course Architect Name Role Phone Unavailable Primary Care Provider [...]
== END 2025-01-28 14:51 | disposition home or self-care (01) ==
PROVIDERS: PCP Physician Assistant Medical; Visit Provider Physician Assistant Medical
DX: Z01.818 Encounter for other preprocedural examination (principal); R74.01 Elevation of levels of liver transaminase levels

== ENCOUNTER 2025-01-28 13:57 | Outpatient (REF) | payer OTHER, SELFPAY ==
[2025-01-28 18:23] LABS: Hematocrit 46.3 % (42.0-52.0); Hemoglobin 15.2 g/dl (14.0-18.0); Mean Corpuscular HGB Conc 32.8 g/dl (31.0-36.0); Mean Corpuscular Hemoglobin 28.1 pg (27.0-33.0); Mean Corpuscular Volume 85.7 fL (80.0-98.0); NRBC Abs Auto 0.000 X10*3/uL (0.0-0.012); NRBC Pct Auto 0.0 /100WBC (0.0-0.2); Platelet Count 241 X10*3/uL (160-400); Red Blood Count 5.40 X10*6/uL (4.60-5.80); White Blood Count 9.2 X10*3/uL (4.8-10.8)
[2025-01-28 18:48] LABS: INTERNATIONAL NORM RATIO 1.0 (0.9-1.1); Prothrombin Time 12.7 SEC (11.2-13.5)
[2025-01-28 18:50] LABS: Alanine Aminotransferase 255 U/L (0-40); Albumin Level 5.0 g/dL (3.5-5.0); Alkaline Phosphatase 70 U/L (39-117); Anion Gap 14 (12-20); Aspartate Amino Transferase 62 U/L (5-37); Blood Urea Nitrogen 8 mg/dL (9-16); Calcium 9.9 mg/dL (8.4-10.2); Carbon Dioxide 28 mmol/L (22-29); Chloride 103 mmol/L (96-108); Cholesterol 177 mg/dL (<200); Estimated Glomerular Filt Rate > 60; HDL Cholesterol 42 mg/dL (>40); Potassium 3.5 mmol/L (3.3-5.1); Sodium 141 mmol/L (135-145); Total Protein 7.7 g/dL (6.5-8.0); Triglycerides 103 mg/dL (<150)
== END 2025-01-28 13:58 | disposition home or self-care (01) ==
LOC: HO.WFDLDS 13:57
PROVIDERS: PCP Physician Assistant Medical; Visit Provider Physician Assistant Medical
DX: Z01.818 Encounter for other preprocedural examination (principal); Z79.01 Long term (current) use of anticoagulants; G47.9 Sleep disorder, unspecified; E78.5 Hyperlipidemia, unspecified
CPT/HCPCS: 36415; 80053; 80061; 84443; 85027; 85610; 93005; 99212

== ENCOUNTER 2025-02-04 10:54 | Outpatient (REF) | payer OTHER, SELFPAY ==
--- OUTSIDE RECORDS SUMMARY | 2025-02-04 12:35 | XMS_ITS | Clinical Summary ---
Author Organization [facility] Address [address] [place] [address] Phone Care Team Providers Care Freight Solicitor Name Role Phone Unavailable Primary Care Provider [...]
--- OUTSIDE RECORDS SUMMARY | 2025-02-04 12:35 | XMS_ITS | Clinical Summary ---
Author Organization [facility] Prior to 12/09/2023 Address [address] [place] [address] Care Team Providers Care Crimping Press Operator Name Role Phone Lokesh Price MD Primary Care Provider Allergies Active Allergy Reactions Severity Noted Date Comments Seasonal Medium 09/23/2015 Medications Medication Sig Dispensed Refills Start Date End Date Status Melatonin 5 MG CAPS Take by mouth as needed. 0 Active cetirizine (ZYRTEC) 10 MG tablet TAKE 1 TABLET BY MOUTH DAILY 90 Tab 1 10/05/2017 Active ibuprofen (ADVIL,MOTRIN) 800 MG tablet ibuprofen 800 mg tablet TAKE 1 TABLET 3 TIMES A DAY BY ORAL ROUTE. 0 Active Active Problems Problem Noted Date Carpal tunnel syndrome of right wrist Overweight (BMI 25.0-29.9) 06/30/2021 Asperger's syndrome 03/08/2014 Allergic rhinitis 03/08/2014 Overview: prabhjot Gonzalez Anxiety 03/08/2014 Acne 03/08/2014 Immunizations Name Administration Dates Next Due COVID-19 (Pfizer) Pt Reported 05/23/2020 DTaP 05/09/2000, 7,1995,09/07,1995 HIB 08/06/1996, 6,1995,06/07 HPV (Gardasil) 05/21/2013,12/12/2012,10/10/2012 Hepatitis B-3 Dose (<19yrs) 05/17/1996, 6,1995 MMR (Uhwiihj-Bamdi-Vmieegv) 05/09/2000, 6 Meningococcal (Menactra) 08/05/2011,08/11/2006 Polio (IPV) 05/28/1999,,1995,06/07 TD (STATE SUPPLIED FOR ADULT S AND CHILDREN) 08/05/2016 Tdap 03/18/2017,08/11/2006 Varicella 07/29/2008,11/06/1997 Family History Medical History Relation Name Comments aneurysm, coronary [Other] Father d ied; leiden 5 deficiency CA Lung Maternal Grandfather Diabetes Maternal Grandfather CA Lung Maternal Grandmother Diabetes Maternal Grandmother Cholesterol Level Mother hypertensi on Relation Name Status Comments Father Maternal Grandfather Maternal Grandmother Mother Social History Tobacco Use Types Packs/Day Years Used Date Smoking Tobacco: Never Smokeless Tobacco: Never Alcohol Use Standard Drinks/Week Comments Yes 2 (1 standard drink = 0.6 oz pur e alcohol) Occasional Alcohol Habits Answer Date Recorded How often do you have a drink containing alcohol ? 2-4 times a month 06/06/2020 How many drinks containing a lcohol do you have on a typical day when you are drinking? 1 or 2 06/06/2020 How often do you have six or more drinks on one occasion? Never 06/06/2020 Social Isolation Answer Date Recorded In a typical week, how many times do you talk on the phone with family, friends, or neighbors? More than three times a week 06/06/2020 How often do you get togethe r with friends or relatives? More than three times a week 06/06/2020 How often do you attend chur or zoroastrianism services? Not asked Do you belong to any clubs o r organizations such as pentecostalism groups, unions, fraternal or athletic groups, or school groups? Not asked How often do you attend meet ings of the clubs or organizations you belong to? Not asked Are you now , , , , never or living with a partner? Not asked Physical Activity Answer Date Recorded On average, how many days pe r week do you engage in moderate to strenuous exercise (like walking fast, running, jogging, dancing, swimming, biking, or other activities that cause a light or heavy sweat)? 5 days 06/06/2020 On average, how many minutes do you engage in exercise at this level? 30 min 06/06/2020 Stress Answer Date Recorded Do you feel stress - tense, restless, nervous, or anxious, or unable to sleep at night because your mind is troubled all the time - these days? To some extent 06/06/2020 Financial Resource Strain Answer Date R ecorded How hard is it for you to pa y for the very basics like food, housing, medical care, and heating? Not hard at all 06/06/2020 Intimate Partner Violence Answer Date R ecorded Within the last year, have y ou been afraid of your partner or ex-partner? No 06/06/2020 Within the last year, have y ou been humiliated or emotionally abused in other ways by your partner or ex-partner? No Within the last year, have y ou been kicked, hit, slapped, or otherwise physically hurt by your partner or ex-partner? No 06/06/2020 Within the last year, have y ou been raped or forced to have any kind of sexual activity by your partner or ex-partner? No 06/06/2020 Food Insecurity Answer Date Recorded Within the past 12 months, y ou worried that your food would run out before you got money to buy more. Never true 06/06/2020 Within the past 12 months, t he food you bought just didn't last and you didn't have money to get more. Never true 06/06/2020 Transportation Needs Answer Date Record ed In the past 12 months, has l ack of transportation kept you from medical appointments or from getting medications? No 05/10 In the past 12 months, has l ack of transportation kept you from meetings, work, or getting things needed for daily living? No 06/06/2020 Housing Stability Answer Date Recorded In the last 12 months, was t here a time when you were not able to pay the mortgage or rent on time? No 06/06/2020 In the last 12 months, how many places have you lived? Not asked In the last 12 months, was t here a time when you did not have a steady place to sleep or slept in a [place] (including now)? No 06/06/2020 Sex Assigned at Date Recorded Not on file Last Filed Vital Signs Vital Sign Reading Time Taken Comments Blood Pressure 116/58 06/30/2021 3:03 PM EDT Pulse 70 06/30/2021 3:03 PM EDT Temperature 36.5 C (97.7 F) 06/30/2021 3:03 PM EDT Respiratory Rate 16 06/06/2020 11:12 AM EDT Oxygen Saturation - - Inhaled Oxygen Concentration - - Weight 95.3 kg (210 lb) 06/30/2021 3:03 PM EDT Height 180.3 cm (5' 11 ) 06/30/2021 3:03 PM EDT Body Mass Index 29.29 06/30/2021 3:03 PM EDT Plan of Treatment Health Maintenance Due Date Last Done Comments BMI CHECK/ADVISE 02/08/2024 06/30/2021, , 10/27/2018, Additional history exists DEPRESSION SCREENING/FOLLOWUP 02/08/2024 06/30/2021 SOCIAL NEEDS SCREENING 02/08/2024 Covid-19 Vaccine (2 - 2022-2 4 season) 2024 05/23/2020 INFLUENZA (#1) 2024 11/23/2018 CHOLESTEROL SCREENING 06/06/2025 06/06/2020, 017 BASELINE HEALTH EXAM 18-39 06/30/202606/30, 06/06/2020, 07/14/2018, Additional history exists DTAP/TDAP/TD (8 - Td or Tdap) 03/18/2027, 08/05/2016, 08/11/2006, Additional history exists PNEUMOCOCCAL VACCINE FOR HIG H RISK PATIENTS (#1) 05/06/2060 Care Teams Crimping Press Operator Relationship Specialty Start Date End Date Lokesh Price MD [address] [place] [address] PCP - General Internal Medicine 02/05/14
--- OUTSIDE RECORDS SUMMARY | 2025-02-04 12:35 | XMS_ITS | Clinical Summary ---
Author Organization [facility] Address [address] [place] [address] Care Team Providers Care Pizza Cook Name Role Phone Unavailable Primary Care Provider [...]
--- OUTSIDE RECORDS SUMMARY | 2025-02-04 12:35 | XMS_ITS | Encounter Summary ---
Author Organization [facility] Address [address] [place] [address] Phone Care Team Providers Care Tube Cutter Name Role Phone Tommy Phan MD Primary Care Provider [phone] Encounter Details Date Type Department Care Team (Late st Contact Info) Description 06/26/2017 Conversion [facility]counter [facility] [address] [place] [address] Tommy Phan MD [address] [place] [address] Social History Tobacco Use Types Packs/Day Years [...] on filedocumented in this encounter Care Teams Tube Cutter Relationship Specialty Start Date End Date Tommy Phan MD [address] [place] [address] PCP - General 06/15/17 11/03/23 documented as of this encounter
[2025-02-04 15:45] LABS: Alanine Aminotransferase 186 U/L (0-40); Albumin Level 4.8 g/dL (3.5-5.0); Alkaline Phosphatase 71 U/L (39-117); Aspartate Amino Transferase 51 U/L (5-37); Gamma Glutamyl Transpeptidase 111 U/L (11-51); Lipase 17 U/L (8-78); Total Protein 7.5 g/dL (6.5-8.0)
[2025-02-04 16:42] LABS: Amylase 47 U/L (28-100)
[2025-02-05 08:04] LABS: HBS Num1 0.00 mIU/mL (0-7.99); HBc Num1 0.09 S/CO (0.00-0.79); HBsAGNum1 0.37 S/CO (0.00-0.99); Hepatitis A Antibody IgM 0.23 Index (0-0.79); Hepatitis B Surface Antigen Negative (Negative); ~HepC Num1 0.18 S/CO (0.00-0.79); ~Hepatitis A Antibody IgM Nonreactive (Nonreactive); ~Hepatitis B Surface Antibody NONREACTIVE (Nonreactive); ~Hepatitis C Antibody Nonreactive (Nonreactive)
[2025-02-05 09:54] LABS: Hepatitis A Antibody IgM 0.19 Index (0-0.79); ~Hepatitis A Antibody IgM Nonreactive (Nonreactive)
== END 2025-02-04 10:55 | disposition home or self-care (01) ==
LOC: HO.WFDLDS 10:54
PROVIDERS: Visit Provider Physician Assistant Medical
DX: R79.89 Other specified abnormal findings of blood chemistry (principal); Z11.59 Encounter for screening for other viral diseases
CPT/HCPCS: 36415; 80076; 82150; 82977; 83690; 86704; 86706; 86709; 86803; 87340